=== PATIENT | female | born 1970 | race African-American/Black ===

== ENCOUNTER → 2018-01-23 | Outpatient (CLI) | payer OTHER ==
[~2018-01-23] MED LIST: ACETAMINOPHEN-1 EAC1 PO; ALLEGRA ALLERGY60 MG PO; AMOXICILLIN875 MG PO; AUGMENTIN 875875 M1 PO; FLEXERIL PO; HIGH BLOOD PRESSURE; HYDROCODONE-AP1 EAC6 PO; LISINOPRIL10 MG PO; NOHOMEMEDICATIONS; NORCO 5-325 TA1 EACH PO; PENICILLIN V P500 MG PO; PREDNISONE 20 M20 M1 PO; PROMETHAZINE-D120 ML PO; TORADOL 10 MG T10 MG PO; ZOFRAN ODT4 MG PO
== END ==
LOC: M.RAD 09:45
DX: Z12.31 Encounter for screening mammogram for malignant neoplasm of breast (principal)

== ENCOUNTER 2018-12-05 17:18 | Emergency (ER) | payer OTHER ==
[~2018-12-05] VITALS: Ht 154.9 cm; Wt 120.8 kg
[2018-12-05] MEDS ORDERED: MEDROXYPROGESTE10 MG PO (17:27)
[2018-12-05] MEDS ORDERED: METFORMIN HCL500 MG PO (17:28)
[2018-12-05] MEDS ORDERED: TIZANIDINE HCL4 M1 PO (17:28)
[2018-12-05] MEDS ORDERED: LIPITOR10 MG PO (17:29)
[2018-12-05] MEDS ORDERED: IRON18 M1 PO (17:29)
[2018-12-05] MEDS ORDERED: LISINOPRIL-HCT1 EACH PO (17:29)
[2018-12-05] MEDS ORDERED: OMEPRAZOLE40 MG PO (17:30)
[2018-12-05] MEDS ORDERED: PHENTERMINE H37.5 MG PO (17:30)
[2018-12-05 18:07] LABS: ABSOLUTE EOSINOPHILS 0.2 thou/uL (0.0-0.7); ABSOLUTE LYMPHOCYTES 3.2 thou/uL (0.8-5.3); ABSOLUTE MONOCYTES 0.8 thou/uL (0.0-1.2); ABSOLUTE NEUTROPHILS 4.5 thou/uL (1.6-8.1); BASOPHILS 0.4 %; EOSINOPHILS 2.7 %; HEMATOCRIT 39.4 % (37.0-47.0); LYMPHOCYTES 36.5 %; MCH 24.1 pg (26.0-34.0); MCHC 33.1 g/dL (28.0-37.0); MCV 72.8 fL (80.0-100.0); MONOCYTES 9.1 %; MPV 7.1 fl. (7.2-11.1); NUCLEATED RBCS 0 /100WBC; PLATELET COUNT* 364 thou/uL (150-400); POLYS 51.3 %; RBC 5.41 mil/uL (4.20-5.00); RDW-CV 19.5 % (10.5-14.5); WBC 8.8 thou/uL (4.0-11.0)
[2018-12-05 18:25] LABS: ALBUMIN 3.5 g/dL (3.4-5.0); ALKALINE PHOSPHATASE 58 U/L (46-116); ANION GAP 14 mmol/L (7-16); BUN 14 mg/dL (7-18); CALCIUM 9.3 mg/dL (8.5-10.1); CHLORIDE 99 mmol/L (98-107); CO2 22 mmol/L (21-32); CREATININE 0.9 mg/dL (0.6-1.3); GLUCOSE 113 mg/dL (70-99); LIPASE 133 U/L (73-393); SGOT 12 U/L (15-37); SGPT 16 U/L (30-65); SODIUM 135 mmol/L (136-145); TOTAL BILIRUBIN 0.3 mg/dL (<0.1-1.0); TOTAL PROTEIN 7.9 g/dL (6.4-8.2); TROPONIN-I LEVEL <0.06 ng/mL (<0.06)
[2018-12-05 18:27] LABS: POTASSIUM 2.9 mmol/L (3.5-5.1)
[2018-12-05 19:42] LABS: URINE BILIRUBIN NEGATIVE (Negative); URINE BLOOD TRACE (Negative); URINE CLARITY CLEAR; URINE COLOR YELLOW; URINE GLUCOSE-RANDOM NEGATIVE (Negative); URINE KETONES TRACE (Negative); URINE LEUKOCYTES-REFLEX NEGATIVE (Negative); URINE NITRITE-REFLEX NEGATIVE (Negative); URINE PROTEIN NEGATIVE (Negative); URINE UROBILINOGEN 0.2 E.U./dl (0.2-1.0)
[2018-12-05 21:33] VITALS: BP 125/70
--- NOTE | 2018-12-07 15:01 | EKG ---
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 GRANT : 1970 Requested By: Ja Staples Order Number: [id number] MD: Semaj Gorman Measurements Intervals [place] Rate: 101 P: 54 AR: 151 QRS: -5 QRSD: 86 T: 39 QT: 346 QTc: 449 Interpretive Statements Sinus tachycardia Probable left atrial enlargement Baseline wander in lead(s) V4 Compared to ECG 09/05/2017 12:53:28 Sinus rhythm no longer present Left ventricular hypertrophy no longer present Electronically Signed On 12-07-2018 15:00:53 CDT by Semaj Gorman [email or web address] <ELECTRONICALLY SIGNED> By: Semaj Gorman MD, FACC 12/07/18 1500 1722 172 Semaj Gorman MD, FAC /EPI
== END 2018-12-05 21:33 | disposition home or self-care (01) ==
LOC: M.ERS 17:18
PROVIDERS: Emergency Medicine Emergency Medical Services
DX: E87.6 Hypokalemia (principal); R10.13 Epigastric pain; R10.10 Upper abdominal pain, unspecified; I10 Essential (primary) hypertension; E11.9 Type 2 diabetes mellitus without complications; E78.5 Hyperlipidemia, unspecified; Z86.2 Personal history of diseases of the blood and blood-forming organs and certain disorders involving the immune mechanism

== ENCOUNTER → 2019-01-12 | Outpatient (CLI) | payer OTHER ==
[~2019-01-12] MED LIST changes: +IRON18 M1 PO; +LIPITOR10 MG PO; +LISINOPRIL-HCT1 EACH PO; +MEDROXYPROGESTE10 MG PO; +METFORMIN HCL500 MG PO; +OMEPRAZOLE40 MG PO; +PHENTERMINE H37.5 MG PO; +TIZANIDINE HCL4 M1 PO
== END ==
LOC: M.RAD 10:16
DX: Z12.31 Encounter for screening mammogram for malignant neoplasm of breast (principal)

== ENCOUNTER 2020-02-27 19:51 | Emergency (ER) | payer OTHER ==
[~2020-02-27] VITALS: Ht 154.9 cm; Wt 119.8 kg
[2020-02-27 20:57] LABS: ABSOLUTE EOSINOPHILS 0.1 thou/uL (0.0-0.7); ABSOLUTE LYMPHOCYTES 1.1 thou/uL (0.8-5.3); ABSOLUTE MONOCYTES 0.9 thou/uL (0.0-1.2); ABSOLUTE NEUTROPHILS 5.2 thou/uL (1.6-8.1); BASOPHILS 0.5 %; EOSINOPHILS 1.3 %; HEMATOCRIT 40.7 % (37.0-47.0); HEMOGLOBIN 13.8 gm/dL (12.0-15.0); LYMPHOCYTES 15.3 %; MCH 27.1 pg (26.0-34.0); MCHC 33.9 g/dL (28.0-37.0); MCV 80.1 fL (80.0-100.0); MONOCYTES 12.5 %; MPV 6.8 fl. (7.2-11.1); NUCLEATED RBCS 0 /100WBC; PLATELET COUNT* 224 thou/uL (150-400); POLYS 70.4 %; RBC 5.08 mil/uL (4.20-5.00); RDW-CV 14.9 % (10.5-14.5); WBC 7.4 thou/uL (4.0-11.0)
[2020-02-27 21:01] LABS: CREATININE 0.9 mg/dL (0.6-1.3); POTASSIUM 3.4 mmol/L (3.5-5.1)
[2020-02-27] MEDS ORDERED: AMOXIL 875 MG875 M1 PO (21:03)
[2020-02-27] MEDS ORDERED: HYDROCODONE-ACE15 ML PO (21:03)
[2020-02-27 21:06] LABS: ALBUMIN 3.1 g/dL (3.4-5.0); MAGNESIUM 1.9 mg/dL (1.8-2.4); TOTAL BILIRUBIN 0.3 mg/dL (<0.1-1.0); TOTAL PROTEIN 7.9 g/dL (6.4-8.2)
[2020-02-27 21:24] VITALS: BP 155/95
--- NOTE | 2020-02-28 11:09 | EKG ---
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1970 Requested By: Luna Salazar Order Number: [id number] MD: Damian Ramírez Measurements Intervals [place] Rate: 101 P: 49 [place]: 160 QRS: -9 QRSD: 90 T: 36 QT: 339 QTc: 440 Interpretive Statements Sinus tachycardia Probable left atrial enlargement Compared to ECG 12/05/2018 17:22:58 No significant changes Electronically Signed On 02-28-2020 11:07:03 CDT by Damian Ramírez [email or web address] <ELECTRONICALLY SIGNED> By: Damian Ramírez MD, [facility] 02/28/20 1107 54 54 aDmian Ramírez MD, [facility] /EPI
== END 2020-02-27 21:26 | disposition home or self-care (01) ==
LOC: M.ERS 19:51
PROVIDERS: Emergency Medicine
DX: J02.0 Streptococcal pharyngitis (principal); E11.9 Type 2 diabetes mellitus without complications; I10 Essential (primary) hypertension; E78.5 Hyperlipidemia, unspecified; Z98.51 Tubal ligation status; Z86.2 Personal history of diseases of the blood and blood-forming organs and certain disorders involving the immune mechanism

== ENCOUNTER 2020-10-06 09:07 | Emergency (ER) | payer OTHER ==
[~2020-10-06] VITALS: Ht 152.4 cm; Wt 117.9 kg
[~2020-10-06 09:07] MED LIST changes: +AMOXIL 875 MG875 M1 PO; +HYDROCODONE-ACE15 ML PO
[2020-10-06 09:50] LABS: CALCIUM 9.1 mg/dL (8.5-10.1); CREATININE 0.8 mg/dL (0.6-1.3)
[2020-10-06 09:54] LABS: ABSOLUTE BASOPHILS 0.1 thou/uL (0.0-0.2); ABSOLUTE EOSINOPHILS 0.1 thou/uL (0.0-0.7); ABSOLUTE LYMPHOCYTES 1.5 thou/uL (0.8-5.3); ABSOLUTE MONOCYTES 0.3 thou/uL (0.0-1.2); ABSOLUTE NEUTROPHILS 1.8 thou/uL (1.6-8.1); APTT 25.6 Seconds (25.0-31.3); BASOPHILS 1.4 %; HEMATOCRIT 43.4 % (37.0-47.0); HEMOGLOBIN 14.5 gm/dL (12.0-15.0); MCH 26.6 pg (26.0-34.0); MCHC 33.4 g/dL (28.0-37.0); MCV 79.8 fL (80.0-100.0); MONOCYTES 8.7 %; MPV 6.7 fl. (7.2-11.1); NUCLEATED RBCS 0 /100WBC; PLATELET COUNT* 272 thou/uL (150-400); POLYS 46.9 %; PROTIME 9.9 Seconds (9.20-11.50); RBC 5.44 mil/uL (4.20-5.00); RDW-CV 15.3 % (10.5-14.5); WBC 3.8 thou/uL (4.0-11.0)
[2020-10-06 09:57] LABS: INR < 0.9
[2020-10-06 10:01] LABS: ALBUMIN 3.1 g/dL (3.4-5.0); TOTAL BILIRUBIN 0.2 mg/dL (<0.1-1.0); TOTAL PROTEIN 7.1 g/dL (6.4-8.2)
[2020-10-06] MEDS ORDERED: HYDROCODON-ACE1 EAC7 PO (10:22)
[2020-10-06] MEDS ORDERED: ULTRAM 50MG TAB50 MG PO (10:29)
[2020-10-06 10:32] VITALS: BP 148/99
--- NOTE | 2020-10-06 16:14 | EKG ---
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1970 Requested By: Joseph Mar Order Number: [id number] MD: Luis Stewart Measurements Intervals [place] Rate: 70 P: 55 ID: 173 QRS: -16 QRSD: 98 T: 40 QT: 414 QTc: 447 Interpretive Statements Sinus rhythm Probable left atrial enlargement Left ventricular hypertrophy Compared to ECG 02/27/2020 19:55:43 Left ventricular hypertrophy now present Sinus tachycardia no longer present Electronically Signed On 10-06-2020 16:14:28 VENUE ATTENDANT by Luis Stewart [email or web address] <ELECTRONICALLY SIGNED> By: Luis Stewart MD, [facility] 10/06/20 1614 0937 0937 Luis Stewart MD, [facility] /EPI
== END 2020-10-06 10:32 | disposition home or self-care (01) ==
LOC: M.ERS 09:07
PROVIDERS: Family Medicine
DX: R42 Dizziness and giddiness (principal); R79.1 Abnormal coagulation profile; E11.9 Type 2 diabetes mellitus without complications; I10 Essential (primary) hypertension; E78.5 Hyperlipidemia, unspecified; Z79.899 Other long term (current) drug therapy; Z98.51 Tubal ligation status

== ENCOUNTER → 2021-05-01 | Outpatient (CLI) | payer OTHER ==
[~2021-05-01] MED LIST changes: +HYDROCODON-ACE1 EAC7 PO; +ULTRAM 50MG TAB50 MG PO
== END ==
LOC: M.RAD 08:53
PROVIDERS: ATTEND Family Medicine
DX: Z12.31 Encounter for screening mammogram for malignant neoplasm of breast (principal); N64.89 Other specified disorders of breast

== ENCOUNTER 2021-05-13 08:42 | Emergency (ER) | payer OTHER ==
[~2021-05-13] VITALS: Ht 152.4 cm; Wt 122.5 kg
[2021-05-13] MEDS ORDERED: CALCIUM500 MG PO (08:53)
[2021-05-13] MEDS ORDERED: AMOXIL 875 MG875 M2 PO (10:05)
[2021-05-13 10:10] VITALS: BP 184/91
== END 2021-05-13 10:10 | disposition home or self-care (01) ==
LOC: M.ERS 08:42
DX: J02.0 Streptococcal pharyngitis (principal); Z20.822 Contact with and (suspected) exposure to COVID-19; E11.9 Type 2 diabetes mellitus without complications; I10 Essential (primary) hypertension; E78.5 Hyperlipidemia, unspecified; Z98.51 Tubal ligation status; Z79.899 Other long term (current) drug therapy